=== PATIENT | male | born 1950 | race Caucasian/White ===

== ENCOUNTER 2020-07-25 11:26 | Emergency (ER) | payer MEDICARE, OTHER, SELFPAY ==
--- NOTE | ~2020-07-25 | XR_ITS ---
EXAMINATION: XR hip LT 2V w AP pelvis DATE: 07/25/2020 12:29 INDICATION: Left hip and pelvic pain post fall TECHNIQUE: Anteroposterior view of the pelvis and anteroposterior and frog-leg lateral views of the l eft hip were obtained. COMPARISON: None. FINDINGS: Alignment is normal. No fracture. Mild to moderate bilateral hip osteoarthritis with mild inferomedia l predominant nonuniform joint space narrowing and prominent marginal osteophytes along the acetabula . Moderate bilateral sacroiliac osteoarthritis. Severe lumbar spondylosis. Enthesophytes along the an terior iliac spines and left greater and lesser trochanters. IMPRESSION: 1. Prominent degenerative skeletal changes in the spine, pelvis and proximal femurs as detailed above . No acute osseous abnormality. Reviewed, dictated and finalized at location B. [facility] [employer] IMPRESSION: 1. Prominent degenerative skeletal changes in the spine, pelvis and proximal fe murs as detailed above. No acute osseous abnormality.
--- NOTE | ~2020-07-25 | XR_ITS ---
EXAMINATION: XR chest 2V DATE: 07/25/2020 12:29 INDICATION: Intraoperative fibrillation with rapid ventricular rate. TECHNIQUE: Frontal and lateral views of the chest were obtained on 3 radiographs. COMPARISON: Chest 2 views 10/22/17 FINDINGS: The chest demonstrates clear lungs without pneumonia, pleural effusion, or pneumothorax. Th e heart size is normal. There is a left chest wall pacer with leads in the right atrium and right wendy tricle. Median sternotomy wires and mediastinal surgical clips are seen, likely from prior coronary a rtery bypass grafting. There is mild chronic anterior wedging of T11 and T12 vertebral bodies. IMPRESSION: 1. No acute cardiopulmonary disease. Reviewed, dictated and finalized at location A. [employer]
[2020-07-25 11:34] VITALS: BP 113/65; PULSE 123; RESP 16; TEMP 36; O2SAT 100
--- NOTE | 2020-07-25 11:54 | ECG_ITS ---
Measurements Intervals [place] Rate: 91 P: MA: 0 QRS: 19 QRSD: 122 T: 44 QT: 362 QTc: 447 Interpretive Statements ATRIAL FIBRILLATION VENTRICULAR PREMATURE COMPLEXES INTRAVENTRICULAR CONDUCTION DELAY LOW VOLTAGE- PRECORDIAL LEADS BORDERLINE R WAVE PROGRESSION, ANTERIOR LEADS BORDERLINE ST-T WAVE ABNORMALITY- DIFFUSE LEADS ABNORMAL ECG Electronically Signed On 07-25-2020 12:54:08 AGENT [employer]PA DESK by José Manuel Cerda D.O.
--- NOTE | 2020-07-25 11:54 | ED.FALL ---
HPI - Fall General Chief Complaint: Fall Stated Complaint: fall Time Seen by Provider: 07/25/20 11:35 Source: patient Mode of arrival: ambulatory Limitations: no limitations History of Present Illness HPI Narrative: A 70-year-old male presents to the emergency department today with complaints of a fall at home. Patient states that he was up on a ladder, leaned over to the side to grab something lost his balance and fell. Patient notes that this happened on Saturday. He does state that he has been having a lot of difficulty with ambulation secondary to pain. He states sitting in the bed now he is able to move his leg and states that the pain is much better. Related Data Home Medications Medication Instructions Recorded Confirmed amlodipine 5 mg tablet 5 mg PO DAILY 05/08/19 07/14/20 apixaban 5 mg tablet 5 mg PO BID 05/08/19 07/14/20 aspirin 81 mg tablet,delayed 81 mg PO DAILY 05/08/19 07/14/20 release atorvastatin 10 mg tablet 10 mg PO .every other day tablet 05/08/19 07/14/20 docusate sodium 100 mg capsule 200 mg PO DAILY cap 05/08/19 07/14/20 losartan 100 1 tablet PO DAILY 05/08/19 07/14/20 mg-hydrochlorothiazide 12.5 mg tablet magnesium 30 mg tablet 30 mg PO DAILY 05/08/19 07/14/20 nitroglycerin 0.4 mg sublingual 0.4 mg SUBLINGUAL Q5M PRN 05/08/19 07/14/20 tablet furosemide 20 mg tablet 20 mg PO QAM 11/17/19 07/14/20 potassium chloride 20 mEq 20 meq PO BID 11/17/19 07/14/20 tablet,extended release(part/cryst) metoprolol succinate 25 mg 50 mg PO DAILY tablet 07/14/20 07/14/20 tablet,extended release 24 hr Allergies Allergy/AdvReac Type Severity Reaction Status Date / Time No Known Allergies Allergy Verified 07/25/20 11:41 Review of Systems Review of Systems: Narrative: CONSTITUTIONAL: Denies fever, chills, or sweats. EYES: Denies visual changes, redness, or discharge. ENT: Denies rhinorrhea, congestion, sore throat, or otalgia. CARDIOVASCULAR: Denies chest pain, palpitations, or edema. RESPIRATORY: Denies cough or dyspnea. GASTROINTESTINAL: Denies abdominal pain, nausea, vomiting, or diarrhea. GENITOURINARY: Denies dysuria or hematuria. SKIN: Denies rash or itching. MUSCULOSKELETAL: Denies back pain, joint pain, or myalgia. Endorses left hip and pelvic pain NEUROLOGIC: Denies headache, numbness, dizziness, or weakness. PSYCHIATRIC: Denies anxiety or depression. [facility] Past Medical History Medical History Chronic radicular pain of lower back Ganglion cyst of finger of left hand Nausea SOB (shortness of breath) Surgical History Surgical History History of appendectomy History of degenerative disc disease History of right inguinal hernia repair Hx of CABG S/P CABG x 5 Family History Family History Mother Family history of heart disease in male family member before age 55 Hypertension Dementia Father Hypertension Congestive heart failure Pneumonia Sibling Hypertension Social History Social History Smoking status: Former smoker Smoking end date: 07/01/79 Alcohol intake: never Exam Narrative: Exam Narrative: GENERAL: Well-appearing, well-nourished, and in no acute distress. HEAD: Normocephalic, atraumatic. EYES: PERRLA and EOMI. ENT: Nares clear, no rhinorrhea or epistaxis. Mucous membranes moist. Oropharynx without tonsillar hypertrophy exudate or other lesions. Bilateral TMs pearly bowman nonbulging NECK: Supple. No adenopathy or masses. No carotid bruits or JVD CHEST: Clear to auscultation. No respiratory distress. No wheezes rales or rhonchi HEART: Tachycardic and irregularly irregular. No murmur heard. Normal peripheral pulses. ABDOMEN: Soft, nontender, nondistended, normal active bowel sounds. EXTREMITIES: Normal range of motion. No edema. SKIN: Warm,
[2020-07-25 12:04] VITALS: BP 136/92; PULSE 89; RESP 20; O2SAT 97
[2020-07-25] MEDS: dilTIAZem HCl INJ 25 MG/5 ML VIAL IV PUSH (12:04)
[2020-07-25 12:05] LABS: Basophils Percent Auto 0.3 % (0.2-1.2); Eosinophils Percent Auto 0.2 % (0-4.4); Hematocrit 45.5 % (42.0-52.0); Hemoglobin 15.8 g/dL (14.0-18.0); Immature Granulocyte Absolute 0.04 K/mm3 (0.00-0.031); Immature Granulocyte Percent A 0.4 % (0-0.5); Lymphocytes Absolute Auto 2.15 K/mm3 (0.9-3.2); Mean Corpuscular HGB Conc 34.7 g/dl (32-36); Mean Corpuscular Hemoglobin 32.8 pg (26-34); Mean Corpuscular Volume 94.6 fl (80-100); Mean Platelet Volume 9.7 fl (7.4-10.4); Monocytes Absolute Auto 0.9 K/mm3 (0.1-0.6); Monocytes Percent Auto 8.6 % (2.6-8.5); Neutrophils Absolute Auto 7.6 K/mm3 (1.3-6.7); Neutrophils Percent Auto 70.5 % (45.5-73.1); Platelet Count Result 145 k/mm3 (150-375); Red Blood Count 4.81 M/mm3 (4.6-6.20); Red Cell Distribution Width 13.4 % (11.5-14.5); White Blood Count 10.8 K/mm3 (4.5-10.0)
[2020-07-25 12:23] LABS: Alanine Aminotransferase 30 U/L (4-50); Albumin Level 4.3 g/dL (3.5-5.1); Alkaline Phosphatase 101 U/L (38-126); Aspartate Amino Transferase 34 U/L (17-59); Bilirubin,Total 2.2 mg/dL (0.2-1.3); Blood Urea Nitrogen 25 mg/dL (9-20); Calcium 9.5 mg/dL (8.4-10.2); Chloride 98 mmol/L (98-107); Estimated CRCL calculation 68 ml/min; Estimated Glomerular Filt Rate 60; Glucose 112 mg/dL (75-110); Magnesium 1.7 mg/dL (1.6-2.3); Potassium 3.5 mmol/L (3.4-5.0); Sodium 140 mmol/L (137-145)
[2020-07-25 12:28] LABS: NT Pro B Type Natriuretic Pept 471 PG/ML (5-100)
[2020-07-25 12:30] LABS: Anion Gap 8 mmol/L (8-16); Carbon Dioxide 34 mmol/L (22-30)
[2020-07-25 12:31] LABS: Troponin I < 0.012 ng/mL (0.000-0.034)
[2020-07-25 13:06] VITALS: BP 110/85; PULSE 93; RESP 21; O2SAT 97
[2020-07-25 14:16] VITALS: BP 116/87; PULSE 102; RESP 26; O2SAT 99
[2020-07-25 14:54] VITALS: BP 110/71; PULSE 101; RESP 18; O2SAT 98
== END 2020-07-25 14:56 | disposition home or self-care (01) ==
PROVIDERS: Emergency Provider Emergency Medicine; PCP Internal Medicine
DX: S70.02XA Contusion of left hip, initial encounter (principal); I48.91 Unspecified atrial fibrillation; I25.10 Atherosclerotic heart disease of native coronary artery without angina pectoris; Z95.1 Presence of aortocoronary bypass graft; Z79.01 Long term (current) use of anticoagulants; Z87.891 Personal history of nicotine dependence; I49.3 Ventricular premature depolarization; I45.9 Conduction disorder, unspecified; R94.31 Abnormal electrocardiogram [ECG] [EKG]; W11.XXXA Fall on and from ladder, initial encounter
CPT/HCPCS: 36415; 71046; 73502; 80053; 83735; 83880; 84484; 85025; 93005; 96374; 99284

== ENCOUNTER 2022-12-10 17:58 | Emergency (ER) | payer MEDICARE, OTHER, SELFPAY ==
[2022-12-10 19:31] VITALS: BP 129/93; PULSE 64; RESP 17; TEMP 36.6; O2SAT 99
== END 2022-12-10 19:45 | disposition left against medical advice (07) ==
PROVIDERS: PCP Nurse Practitioner Family
DX: L98.8 Other specified disorders of the skin and subcutaneous tissue (principal)
CPT/HCPCS: 99199

== ENCOUNTER 2022-12-12 09:27 | Emergency (ER) | payer MEDICARE, OTHER, SELFPAY | END 2022-12-12 10:48 | disposition home or self-care (01) | PROVIDERS: Emergency Provider Nurse Practitioner Family; PCP Family Medicine | DX: S81.801A Unspecified open wound, right lower leg, initial encounter (principal); W22.8XXA Striking against or struck by other objects, initial encounter; I10 Essential (primary) hypertension; I48.91 Unspecified atrial fibrillation; Z95.5 Presence of coronary angioplasty implant and graft; I25.10 Atherosclerotic heart disease of native coronary artery without angina pectoris; Z95.0 Presence of cardiac pacemaker; Z95.1 Presence of aortocoronary bypass graft | CPT/HCPCS: 99213; G0463 ==

== ENCOUNTER 2023-02-03 14:04 | Emergency (ER) | payer MEDICARE, OTHER, SELFPAY | END 2023-02-03 14:56 | disposition home or self-care (01) | LOC: EXPCOLL 02-11 11:19 | PROVIDERS: Emergency Provider Registered Nurse; PCP Family Medicine | DX: L03.115 Cellulitis of right lower limb (principal); S81.801A Unspecified open wound, right lower leg, initial encounter; W20.8XXA Other cause of strike by thrown, projected or falling object, initial encounter; I10 Essential (primary) hypertension; I48.91 Unspecified atrial fibrillation | CPT/HCPCS: 99213; G0463 ==

== ENCOUNTER 2024-02-01 11:19 | Emergency (ER) | payer MEDICARE, OTHER, SELFPAY ==
[2024-02-01 11:32] VITALS: BP 107/76; PULSE 94; RESP 16; TEMP 36.6; O2SAT 99
--- NOTE | 2024-02-01 11:46 | ED.URI ---
HPI - URI/Sore Throat General Chief Complaint: Upper Respiratory Infection Stated Complaint: Cough/Congestion Time Seen by Provider: 02/01/24 12:00 Source: patient and RN notes reviewed Mode of arrival: ambulatory Limitations: no limitations History of Present Illness HPI Narrative: 73-year-old male with history of AFib presents with concern for 10 day history of body aches, fatigue, cough, nasal congestion. Reports he is taking Mucinex. Reports he had a negative COVID test on the symptoms 1st began. He had fevers the 1st several days of his symptoms. He denies shortness of breath MD elicited complaint: cough Related Data Home Medications Medication Instructions Recorded Confirmed nitroglycerin 0.4 mg sublingual 0.4 mg sublingual Q5M PRN Chest 05/08/19 02/01/24 tablet (Nitrostat) Pain potassium chloride 20 mEq 20 meq PO BID 11/17/19 02/01/24 tablet,extended release(part/cryst) (Klor-Con M) multivitamin 1 tablet PO DAILY 02/13/21 02/01/24 sildenafil 50 mg tablet 50 mg PO DAILY PRN Erectile 10/19/22 02/01/24 Dysfunction atorvastatin 10 mg tablet 10 mg PO .COMPLEX 12/13/22 02/01/24 docusate sodium 100 mg capsule 200 mg PO BID 12/13/22 02/01/24 metoprolol succinate 25 mg 100 mg PO DAILY 12/13/22 02/01/24 tablet,extended release 24 hr (Toprol XL) acetaminophen 650 mg 650 mg PO Q8H 02/06/23 02/01/24 tablet,extended release (Tylenol Arthritis Pain) mupirocin calcium 2 % topical cream 1 applic topical BID 02/06/23 02/01/24 cholecalciferol (vitamin D3) 1 tab-cap PO DAILY 10/01/23 02/01/24 [Dialyvite Vitamin D] magnesium 30 mg tablet 400 mg PO DAILY 10/01/23 02/01/24 Allergies Allergy/AdvReac Type Severity Reaction Status Date / Time No Known Allergies Allergy Verified 02/01/24 11:23 Review of Systems Review of Systems: CONSTITUTIONAL: Reports malaise, fatigue EYES: Denies visual changes, redness, or discharge. ENT: Reports rhinorrhea, congestion CARDIOVASCULAR: Denies chest pain, palpitations, or edema. RESPIRATORY: Reports cough. Denies dyspnea. GASTROINTESTINAL: Denies abdominal pain, nausea, vomiting, diarrhea SKIN: Denies rash or itching. MUSCULOSKELETAL: Reports myalgia. NEUROLOGIC: Denies headache. All systems reviewed & are unremarkable except as noted in HPI and below PMFSH Past Medical History Medical History Atrial fibrillation Benign essential hypertension Chronic radicular pain of lower back COVID-19 Ganglion cyst of finger of left hand Mixed hyperlipidemia Nausea SOB (shortness of breath) Surgical History Surgical History History of appendectomy History of degenerative disc disease History of right inguinal hernia repair Hx of CABG Previous back surgery S/P CABG x 5 Family History Family History Mother Family history of heart disease in male family member before age 55 Hypertension Dementia Father Hypertension Congestive heart failure Pneumonia Sibling Hypertension Social History Social History Smoking status: Former smoker Smoking end date: 07/01/79 Alcohol intake: never Substance use: never Lack of Transportation: No Lack of Food: Never True Current Housing: I Have Housing Concerned About Future Housing: No Difficulty Paying Gas/Electric Bills: No Difficulty Paying for Meds: No Currently Unemployed: No Education: Associate Degree Difficulty w/ Childcare or Family Care: No Comments At time of signature, agree with nursing past medical, surgical, social and family history. There is no relevant family history pertinent to the presenting complaint Exam Narrative: GENERAL: Nontoxic-appearing, well-nourished, and in no acute distress. HEAD: Normocephalic EYES: PERRLA, conjunctivae clear ENT: Merlyn rubin
== END 2024-02-01 12:24 | disposition home or self-care (01) ==
PROVIDERS: Emergency Provider Nurse Practitioner; PCP Family Medicine
DX: J22 Unspecified acute lower respiratory infection (principal); Z87.891 Personal history of nicotine dependence; I48.91 Unspecified atrial fibrillation; I10 Essential (primary) hypertension; E78.2 Mixed hyperlipidemia; Z86.16 Personal history of COVID-19; Z95.1 Presence of aortocoronary bypass graft
CPT/HCPCS: 99213; G0463

== ENCOUNTER 2025-02-25 11:21 | Emergency (ER) | payer MEDICARE, OTHER, SELFPAY ==
[2025-02-25 11:38] VITALS: BP 111/71; PULSE 64; RESP 16; TEMP 36.1; O2SAT 99
--- NOTE | 2025-02-25 11:40 | ED.URI ---
HPI - URI/Sore Throat General Chief Complaint: Upper Respiratory Infection Stated Complaint: SORE THROAT/NOT SLEEPING/SNEEZING/COUGH Time Seen by Provider: 02/25/25 11:40 Source: patient and RN notes reviewed Mode of arrival: ambulatory Limitations: no limitations History of Present Illness HPI Narrative: 74 y/o male presented for c/o nasal congestion, cough, and sore throat over several weeks. Endorses cough is worse at night and keeping him up at night. Denies sob, wheezing, cp, fatigue or lethargy, n/v/d/f/c. Taking occasional Delsym but says it does not help. MD elicited complaint: cough Related Data Home Medications ?Medication ?Instructions ?Recorded ?Confirmed ?Last Taken ?Type nitroglycerin 0.4 mg sublingual 0.4 mg sublingual Q5M PRN Chest 05/08/19 02/01/24 Unknown History tablet (Nitrostat) Pain potassium chloride 20 mEq 20 meq PO BID 11/17/19 02/01/24 Unknown History tablet,extended release(part/cryst) (Klor-Con M) multivitamin 1 tablet PO DAILY 02/13/21 02/01/24 Unknown History sildenafil 50 mg tablet 50 mg PO DAILY PRN Erectile 10/19/22 02/01/24 Unknown History Dysfunction atorvastatin 10 mg tablet 10 mg PO .COMPLEX 12/13/22 02/01/24 Unknown History docusate sodium 100 mg capsule 200 mg PO BID 12/13/22 02/01/24 Unknown History acetaminophen 650 mg 650 mg PO Q8H 02/06/23 02/01/24 Unknown History tablet,extended release (Tylenol Arthritis Pain) cholecalciferol (vitamin D3) 1 tab-cap PO DAILY 10/01/23 02/01/24 Unknown History [Dialyvite Vitamin D] magnesium 30 mg tablet 400 mg PO DAILY 10/01/23 02/01/24 Unknown History furosemide 40 mg tablet mg 02/25/25 Unknown History metoprolol succinate 100 mg mg PO 02/25/25 Unknown History tablet,extended release 24 hr Allergies Allergy/AdvReac Type Severity Reaction Status Date / Time No Known Allergies Allergy Verified 02/25/25 11:46 Review of Systems Review of Systems: CONSTITUTIONAL: denies malaise, body aches, chills, sweats, fever EYES: Denies visual changes, redness, or discharge ENT: Reports rhinorrhea, congestion, sore throat CARDIOVASCULAR: Denies chest pain, palpitations, edema RESPIRATORY: Reports cough, post nasal drainage. Denies dyspnea GASTROINTESTINAL: Denies abdominal pain, nausea, vomiting, diarrhea SKIN: Denies rash or itching NEUROLOGIC: Denies headache PMFSH Past Medical History Medical History COVID-19 Nausea SOB (shortness of breath) Ganglion cyst of finger of left hand Atrial fibrillation Benign essential hypertension Chronic radicular pain of lower back Mixed hyperlipidemia Surgical History Surgical History Previous back surgery History of degenerative disc disease History of right inguinal hernia repair History of appendectomy Hx of CABG S/P CABG x 5 Family History Family History Mother Family history of heart disease in male family member before age 55 Hypertension Dementia Father Hypertension Congestive heart failure Pneumonia Sibling Hypertension Social History Social History Smoking status: Former smoker Smoking end date: 07/01/79 Alcohol intake: never Substance use: never Lack of Transportation: No Lack of Food: Never True Current Housing: I Have Housing Concerned About Future Housing: No Difficulty Paying Gas/Electric Bills: No Difficulty Paying for Meds: No Currently Unemployed: No Education: Associate Degree Difficulty w/ Childcare or Family Care: No Exam Narrative: GENERAL: well-appearing EYES: conjunctivae clear ENT: Mucous membranes moist. TM pearly bowman with dull light reflex bilaterally; no tragal tenderness. Oropharynx not erythematous without lesions or exudate, no drooling, no hoarseness, no trismus, uvula midline. No tripod positioning, muffled voice, soft palate or pharyngeal wall bulging NECK: Supple. No lymphadenopathy CHEST: Clear to auscultation, breath sounds equal. No wheezing, rhonchi, rales, or stridor. No respiratory distress, speaks in full sentences. HEART: Regular rate and rhythm. No murmur heard. SKIN: Warm, dry, no rash. NEURO: Alert and oriented x3. PSYCH: Normal mood and affect Course Course Emergency Course: Patient is aware of diagnosis, understands and agrees to treatment plan. Anticipatory guidance given. Patient agrees to follow-up as directed and is aware of reasons to seek care at the emergency department. Portions of this record may have been created with voice recognition software Level of Care: Express Care Visit Vital Signs Vital signs: Vital Signs Temperature 97 F L 02/25/25 11:38 Pulse Rate 64 02/25/25 11:38 Respiratory Rate 16 02/25/25 11:38 Blood Pressure 111/71 02/25/25 11:38 Pulse Oximetry 99 02/25/25 11:38 Temperature 97 F L 02/25/25 11:38 Pulse Rate 64 02/25/25 11:38 Respiratory Rate 16 02/25/25 11:38 Blood Pressure 111/71 02/25/25 11:38 Pulse Oximetry 99 02/25/25 11:38 reviewed MDM - URI/Sore Throat MDM Narrative Medical decision making narrative: Discussed physical exam findings, reviewed RX. Advised supportive measures and signs/symptoms to go to the ER. Pt is appropriate for outpt treatment and f/u. Differential Diagnosis Differential diagnosis: Likely upper respiratory infection, sinusitis and viral infection Discharge Plan Discharge Clinical Impression: Bronchitis Patient Disposition: Home Condition: Stable Instructions: Antibiotic Form, Acute Bronchitis (ED) Additional Instructions: Take medication as directed Recommend Flonase spray and Zyrtec (or Claritin/Aure) over the counter Cough syrup may cause drowsiness; avoid driving or take it at night time. Tylenol every 8 hours as needed for pain Symptomatic treatment includes: rest, fluids, and increase humidity of the air at home. Follow up with your primary care provider as needed in 1 week Go to the ER for worsening symptoms or concerns Patient Language: Romansh Prescriptions: New benzonatate 200 mg capsule 200 mg PO TID PRN (Reason: cough) Qty: 20 0RF amoxicillin-pot clavulanate 875-125 mg tablet 1 tablet PO Q12H 7 Days Qty: 14 0RF No Action furosemide 40 mg tablet metoprolol succinate 100 mg tablet extended release 24 hr PO multivitamin Tablet 1 tablet PO DAILY acetaminophen [Tylenol Arthritis Pain] 650 mg tablet extended release 650 mg PO Q8H terbinafine HCl 250 mg tablet 250 mg PO DAILY Qty: 84 0RF nitroglycerin [Nitrostat] 0.4 mg tablet, sublingual 0.4 mg SUBLINGUAL Q5M PRN (Reason: Chest Pain) magnesium 30 mg tablet 400 mg PO DAILY potassium chloride [Klor-Con M20] 20 mEq tablet,ER particles/crystals 20 meq PO BID sildenafil 50 mg tablet 50 mg PO DAILY PRN (Reason: Erectile Dysfunction) Rx Instructions: administer 30 minutes to 4 hours before activity amlodipine 5 mg tablet 5 mg PO DAILY Qty: 90 1RF Eliquis 5 mg tablet 5 mg PO BID Qty: 180 1RF aspirin 81 mg tablet,delayed release (DR/EC) 81 mg PO DAILY Qty: 90 1RF atorvastatin 10 mg tablet 10 mg PO .COMPLEX Rx Instructions: One po every day Ultra CoQ10 75 mg capsule 200 mg PO DAILY Qty: 90 0RF docusate sodium 100 mg capsule 200 mg PO BID furosemide 20 mg tablet 20 mg PO QAM Qty: 90 0RF losartan-hydrochlorothiazide 100-12.5 mg tablet 1 tablet PO DAILY Qty: 90 0RF cholecalciferol (vitamin D3) [Dialyvite Vitamin D] 1 tab-cap PO DAILY silver sulfadiazine 1 % cream 1 applic topical DAILY Qty: 85 0RF Rx Instructions: apply a 1.5 mm thickness hydrocodone-acetaminophen 5-325 mg tablet See Rx Instructions PO QHS PRN (Reason: pain) Qty: 60 0RF Rx Instructions: 1-2 tablets orally every day at bedtime PRN; Follow-up/Referrals: Hitesh Keating MD [Primary Care Provider, [facility]] Time of Disposition: 12:01
== END 2025-02-25 12:08 | disposition home or self-care (01) ==
PROVIDERS: Emergency Provider Nurse Practitioner Family; PCP Family Medicine
DX: J40 Bronchitis, not specified as acute or chronic (principal); Z87.891 Personal history of nicotine dependence; I48.91 Unspecified atrial fibrillation; I10 Essential (primary) hypertension; E78.2 Mixed hyperlipidemia; Z86.16 Personal history of COVID-19; Z95.1 Presence of aortocoronary bypass graft
CPT/HCPCS: 99213; G0463